=== PATIENT | female | born 1965 | race Caucasian/White ===

== ENCOUNTER → 2022-07-12 | Day surgery (SDC) | payer BC ==
[~2022-07-12] MED LIST: BENICAR HCT 201 EACH PO; CIMZIA400 MG INJ; CRESTOR10 MG PO; EXCEDRIN EXTRA1 EAC1 PO; FAMOTIDINE 20 MG/2 ML VIAL IV ONE; FENTANYL CITRATE/PF 100MCG/2 ML INJ ONE; GLUCAGON FOR INJ 1 MG VIAL ONE; HYOSCYAMINE SULFATE 0.5 MG/ML INJ ONE; LIDOCAINE HCL 2% LOCAL INJ 5 ML SDV VIAL INJ ONE; METFORMIN HCL500 M2 PO; METOCLOPRAMIDE HCL 10 MG/2ML VIAL ONE; NEXIUM40 MG PO; ONDANSETRON HCL INJ 2MG/ML 2ML 2 MG/ML VIAL ONE; OZEMPIC0.25 MG/0. SC; PROPOFOL IV EMULSION 10 MG/ML 20 ML VIAL ONE; PROPOFOL IV EMULSION 10 MG/ML 50 ML VIAL IV ONE; PROPOFOL IV EMULSION 50 ML IV ONE; RASUVO 1010 MG/0.2 INJ; Z.0.AMBIEN5 MG PO
[2022-07-12 09:45] VITALS: BP 117/68
== END | disposition home or self-care (01) ==
LOC: OR 06:07
PROVIDERS: ATTEND Internal Medicine Gastroenterology
DX: K21.9 Gastro-esophageal reflux disease without esophagitis (principal); K29.50 Unspecified chronic gastritis without bleeding; K31.7 Polyp of stomach and duodenum; K52.9 Noninfective gastroenteritis and colitis, unspecified; K63.89 Other specified diseases of intestine; K20.90 Esophagitis, unspecified without bleeding; K62.89 Other specified diseases of anus and rectum; K64.8 Other hemorrhoids; I10 Essential (primary) hypertension; E11.9 Type 2 diabetes mellitus without complications; M06.9 Rheumatoid arthritis, unspecified; Z01.810 Encounter for preprocedural cardiovascular examination; Z79.82 Long term (current) use of aspirin; Z79.84 Long term (current) use of oral hypoglycemic drugs; Z79.85 Long-term (current) use of injectable non-insulin antidiabetic drugs; Z79.899 Other long term (current) drug therapy
CPT/HCPCS: 36415; 43239; 45380; 82948; 83630; 83993; 86140; 87045; 87177; 87324; 87328; 87449; 93005; C9113; J1610; J1980; J2001; J2405; J2704 ×2; J2765; J3010; 45378